=== PATIENT | male | born 1995 | race Caucasian/White ===

== ENCOUNTER 2016-05-15 17:54 | Emergency (ER) | payer SELFPAY ==
[2016-05-15 18:04] VITALS: TEMP 97.7
--- NOTE | 2016-05-15 18:10 | EDPHY ---
H & P Time Seen by Provider: 05/15/16 18:09 HPI/ROS: CHIEF COMPLAINT: Syncopal episode. HISTORY OF PRESENT ILLNESS: The patient is a 20-year-old male who presents after a syncopal episode earlier today. He was eating in a car when he became flushed, his vision went meier, and then he passed out. After he passed out, he had brief seizure-like activity, according to a friend. He was also incontinent of urine. Currently he reports feeling "slower and dazed." He denies headache, tarry stools, vomiting, nausea, dizziness, or other complaints. He's had a few syncopal episodes previously. The episodes occur randomly and he cannot describe any obvious provoking factors. He did fly in from [place] today. He has a family history of diabetes. REVIEW OF SYSTEMS: A complete 10-point review of systems was performed and is negative except for those items mentioned in the HPI. Past Medical/Surgical History: Denies. Social History: Smoker. Smoking Status: Current every day smoker Physical Exam: General Appearance: Alert, pleasant Eyes: Pupils equal and round, no conjunctival pallor or injection ENT, Mouth: Mucous membranes moist Neck: Normal inspection Respiratory: Lungs are clear to auscultation Cardiovascular: Regular rate and rhythm Gastrointestinal: Abdomen is soft and non-tender Neurological: Alert, oriented x3, cranial nerves II through XII intact, motor 5/ 5, sensory intact to light touch, normal gait Skin: Warm and dry, no rash Extremities: Nontender, no pedal edema Psychiatric: Mood and affect normal Constitutional: Initial Vital Signs Temperature (C) 36.5 C 05/15/16 18:02 Heart Rate 98 05/15/16 18:02 Respiratory Rate 16 05/15/16 18:02 Blood Pressure 126/76 H 05/15/16 18:02 O2 Sat (%) 94 05/15/16 18:02 O2 Delivery Mode Room Air Allergies/Adverse Reactions: No Known Allergies Allergy (Unverified 05/15/16 18:01) Home Medications: Medication Instructions Recorded NK [No Known Home Meds] 05/15/16 Medical Decision Making - Diagnostics EKG Interpretation: EKG interpreted by me reveals normal sinus rhythm, normal axis, normal intervals , ST and T segments normal. Interpretation: normal EKG ED Course/Re-evaluation: Patient presents after a syncopal episode with seizure-like activity. There is no indication of a primary seizure. An IV was established and labs ordered. Stat EKG reveals no evidence of dysrhythmia ischemia. Patient was asymptomatic throughout his emergency department stay. personnel monitor revealed normal sinus rhythm throughout. I feel that he is safe and stable for discharge. He will follow up with Cardiology for consideration of Holter monitoring. He will also follow up with Neurology. Differential Diagnosis: Differential diagnosis includes though is not limited to cardiac dysrhythmia, CVA, TIA, GI bleed, sepsis, hypoglycemia. - Data Points Laboratory Results: Laboratory Results 05/15/16 18:15 05/15/16 18:15 Medications Given: Discontinued Medications Sodium Chloride (Ns) 1,000 mls @ 0 mls/hr IV ONCE ONE PRN Reason: Wide Open Stop: 05/15/16 18:18 Last Admin: 05/15/16 18:18 Dose: 1,000 mls Departure - Departure Disposition: Home, Routine, Self-Care Clinical Impression: Syncope Qualifiers: Syncope type: unspecified Qualified Code(s): R55 - Syncope and collapse Condition: Good Instructions: Syncope (ED) Additional Instructions: Call Dr. Man, cardiology, and Dr. Acevedo, neurology, to set up appointments for next week. Return to the emergency department if you experience any serious worsening of condition. Referrals: Clifford Man MD [Medical Doctor] - As per Instructions Leighton Acevedo DO [Medical Doctor] - As per Instructions Report Scribed for: Sindi Tello Report Scribed by: Addison Valdez Date of Report: 05/15/16 Time of Report: 18:09 Physician Review and Approval Statement: 05/15/16 18:10 Portions of this note were transcribed by a medical research tech. I personally performed a history, physical exam, medical decision making, and confirmed accuracy of information the transcribed note.
[2016-05-15] MEDS ORDERED: NS 1,000 ML IV ONE (18:17)
[2016-05-15 18:24] LABS: % IMMATURE GRANULYOCYTES 0.3 % (0.0-1.1); ABSOLUTE IMMATURE GRANULOCYTES 0.04 10^3/uL (0.00-0.10); ADD DIFF? NO; ADD MORPH? NO; ADD SCAN? NO; ATYPICAL LYMPHOCYTE FLAG 10 (0-99); FRAGMENT RBC FLAG 0 (0-99); HEMATOCRIT 53.1 % (40.0-51.0); HEMOGLOBIN 18.4 g/dL (13.7-17.5); LEFT SHIFT FLG 0 (0-99); LIPEMIA HEMOLYSIS FLAG 90 (0-99); MEAN CELL HEMOGLOBIN 29.5 pg (27.9-34.1); MEAN CELL HEMOGLOBIN CONCENTR. 34.7 g/dL (32.4-36.7); MEAN CELL VOLUME 85.2 fL (81.5-99.8); PLATELET CLUMPS FLAG 0 (0-99); PLATELET COUNT 282 10^3/uL (150-400); RED BLOOD CELL COUNT 6.23 10^6/uL (4.40-6.38); RED CELL DISTRIBUTION WIDTH 12.4 % (11.5-15.2)
--- NOTE | 2016-05-15 18:30 | CPEKG ---
Heart Rate: 95 RR Interval: 632 P-R Interval: 152 QRSD Interval: 98 QT Interval: 328 QTC Interval: 413 P [place]: 32 QRS [place]: 22 T Wave [place]: 43 EKG Severity - NORMAL ECG - EKG Impression: SINUS RHYTHM Electronically Signed By: Sindi Tello 15-May-2016 23:18:55
[2016-05-15 18:44] LABS: ANION GAP 9 mEq/L (8-16); CALCIUM 9.6 mg/dL (8.5-10.4); CARBON DIOXIDE 27 mEq/l (22-31); CHLORIDE 101 mEq/L (97-110); CREATININE 0.9 mg/dL (0.7-1.3); GLOMERULAR FILTRATION RATE > 60; GLUCOSE 118 mg/dL (70-100); POTASSIUM 4.3 mEq/L (3.5-5.2); SODIUM 137 mEq/L (134-144)
[2016-05-15 18:56] LABS: TROPONIN I < 0.012 ng/mL (0-0.034)
[2016-05-15 19:58] VITALS: BP 120/74; PULSE 100; RESP 18; O2SAT 95
== END 2016-05-15 19:58 | disposition home or self-care (01) ==
DX: R55 Syncope and collapse (principal); F17.200 Nicotine dependence, unspecified, uncomplicated

== ENCOUNTER 2016-05-19 08:38 | Emergency (ER) | payer SELFPAY ==
--- NOTE | 2016-05-19 09:16 | EDPHY ---
H & P Stated Complaint: [place] a little lightheaded this am;also has sinus congestion; here last week Time Seen by Provider: 05/19/16 08:55 HPI/ROS: CHIEF COMPLAINT: Lightheaded, feeling sick HISTORY OF PRESENT ILLNESS: 21-year-old immunocompetent male awoke with flu- like symptoms this morning, feeling lightheaded. He was seen in the ER a few days ago for complaints of syncopal episode while he was sitting in a vehicle. He was evaluated at time by the ER physician and discharged. He has been asymptomatic ever since. His symptoms today include myalgias, subjective fever , "feeling sick", nasal congestion. No cough. No sore throat. No abdominal pain. No nausea no vomiting. No headache. No nuchal rigidity. No chest pain. No urinary abnormality. No bowel movement abnormality. 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 PRIMARY CARE PROVIDER: REVIEW OF SYSTEMS: A ten point review of systems was performed and is negative with the exception of the items mentioned in the HPI PAST MEDICAL & SURGICAL HISTORY: No pertinent medical or surgical history . Did receive influenza vaccination SOCIAL HISTORY: Daily smoker. No cocaine use. Works as a care provider at [employer] PHYSICAL EXAM (Prior to examination, patient consented to physical exam, hands were washed and my usual and customary physical exam procedures followed) 1) GENERAL: Well-developed, well-nourished, alert and oriented. Appears to be in no acute distress. Appears nontoxic 2) HEAD: Normocephalic, atraumatic 3) HEENT: Pupils equal, round, reactive to light bilaterally. Sclera anicteric. Nasopharynx, oropharynx, clear, no lesions. No tonsillar enlargement or tonsillar exudate. Ears bilaterally with normal tympanic membranes. 4) NECK: Full range of motion, no meningeal signs. 5) LUNGS: Clear auscultation bilaterally, no wheezes, no rhonchi, no retractions. 6) HEART: Regular rate and rhythm, no murmur, no heave, no gallop. 7) ABDOMEN: No guarding, no rebound, no focal tenderness, negative McBurney's, negative Abdul's, negative Rovsing's, negative peritoneal sign, 8) MUSCULOSKELETAL: Moving all extremities, no focal areas of tenderness, no obvious trauma. No peripheral edema or discoloration. 9) BACK: No CVA tenderness, no midline vertebral tenderness, no fluctuance, no step-off, no obvious trauma, no visual or palpable abnormality. 10) SKIN: No rash, no petechiae. 11) NEURO: Awake, alert, and oriented to person, place and time. Answers questions appropriately. There were no obvious focal neurologic abnormalities. No cerebellar dysfunction. Normal steady gait. Upper and lower extremities bilaterally with strength 5 / 5, reflexes 2+.. DIFFERENTIAL DIAGNOSIS: No particular include but limited to seizure, cardiac arrhythmia, viral URI, influenza - Personal History Current Tetanus Diphtheria and Acellular Pertussis (TDAP): Yes - Medical/Surgical History Hx Asthma: No Hx Chronic Respiratory Disease: No Hx Diabetes: No Hx Cardiac Disease: No Hx Renal Disease: No Hx Cirrhosis: No Hx Alcoholism: No Hx HIV/AIDS: No Hx Splenectomy or Spleen Trauma: No Other PMH: denies - Social History Smoking Status: Current every day smoker Constitutional: Initial Vital Signs Temperature (C) 36.7 C 05/19/16 08:40 Heart Rate 88 05/19/16 08:40 Respiratory Rate 16 05/19/16 08:40 Blood Pressure 141/87 H 05/19/16 08:40 O2 Sat (%) 96 05/19/16 08:40 O2 Delivery Mode Room Air Allergies/Adverse Reactions: No Known Allergies Allergy (Verified 05/19/16 08:45) Home Medications: Medication Instructions Recorded NK [No Known Home Meds] 05/15/16 Medical Decision Making ED Course/Re-evaluation: 9:15 a.m.: Old medical records reviewed. 10:45 a.m.: Re-evaluation. Discussed his laboratory results negative for flu, normal chemistry common normal sinus EKG. He has been given IV hydration is noted to have an elevated H and H with normal creatinine. He is feeling improvement after IV hydration. Plan will be discharge with my usual customary viral syndrome precautions. In the meantime should he develop new or worsening symptoms he needs to return to the ER immediately. He feels comfortable with this plan. Given a work note. Discussed with Dr Tello. - Data Points Laboratory Results: Laboratory Results 05/19/16 09:26 05/19/16 09:26 05/19/16 05/19/16 05/19/16 10:03 09:26 09:26 WBC 11.32 10^3/uL H 10^3/uL (3.80-9.50) RBC 6.30 10^6/uL 10^6/uL (4.40-6.38) Hgb 18.5 g/dL H g/dL (13.7-17.5) Hct 53.0 % H % (40.0-51.0) MCV 84.1 fL fL (81.5-99.8) MCH 29.4 pg pg (27.9-34.1) MCHC 34.9 g/dL g/dL (32.4-36.7) RDW 12.5 % % (11.5-15.2) Plt Count 251 10^3/uL 10^3/uL (150-400) MPV 10.0 fL fL (8.7-11.7) Neut % (Auto) 64.8 % % (39.3-74.2) Lymph % (Auto) 19.4 % % (15.0-45.0) [place] % (Auto) 12.2 % % (4.5-13.0) Eos % (Auto) 2.5 % % (0.6-7.6) Baso % (Auto) 0.7 % % (0.3-1.7) Nucleat RBC Rel Count 0.0 % % (0.0-0.2) Absolute Neuts (auto) 7.34 10^3/uL H 10^3/uL (1.70-6.50) Absolute Lymphs (auto) 2.20 10^3/uL 10^3/uL (1.00-3.00) Absolute Monos (auto) 1.38 10^3/uL H 10^3/uL (0.30-0.80) Absolute Eos (auto) 0.28 10^3/uL 10^3/uL (0.03-0.40) Absolute Basos (auto) 0.08 10^3/uL 10^3/uL (0.02-0.10) Absolute Nucleated RBC 0.00 10^3/uL 10^3/uL (0-0.01) Immature Gran % 0.4 % % (0.0-1.1) Immature Gran # 0.04 10^3/uL 10^3/uL (0.00-0.10) Sodium 138 mEq/L mEq/L (134-144) Potassium 4.1 mEq/L mEq/L (3.5-5.2) Chloride 104 mEq/L mEq/L (97-110) Carbon Dioxide 23 mEq/l mEq/l (22-31) Anion Gap 11 mEq/L mEq/L (8-16) BUN 19 mg/dL mg/dL (7-23) Creatinine 0.9 mg/dL mg/dL (0.7-1.3) Estimated GFR > 60 Glucose 95 mg/dL mg/dL (70-100) Calcium 10.0 mg/dL mg/dL (8.5-10.4) Influenza Typ A,B (DFA) NEGATIVE FOR FLU (NEGATIVE) Medications Given: Discontinued Medications Sodium Chloride (Ns) 1,000 mls @ 0 mls/hr IV ONCE ONE PRN Reason: Wide Open Stop: 05/19/16 09:18 Last Admin: 05/19/16 09:28 Dose: 1,000 mls Departure - Departure Disposition: Home, Routine, Self-Care Clinical Impression: Influenza-like illness Condition: Good Instructions: Viral Syndrome (ED) Additional Instructions: Return to the ER if you develop new or worsening symptoms, if you feel lightheaded or any other symptoms that concern you. Adult Pain & Fever Control: We recommend Acetaminophen (Tylenol) and Ibuprofen (Motrin,Advil) for pain and fever control. When fever is high or pain severe, both drugs can be used at the same time, but at different intervals. Please note the time differences. Your dose is: Acetaminophen 1000mg every 6 hours Ibuprofen 800mg every 6 hours with food OR Note: do not take Acetaminophen with Hydrocodone (Vicodin, Lortab) or Oycodone (Percocet). These medications also contain Acetaminophen. No more than 3000mg of Acetaminophen should be taken in 24 hours (for an adult). Referrals: Juan Good MD [Medical Doctor] - 2-3 days, call for appt.
[2016-05-19] MEDS ORDERED: NS 1,000 ML IV ONE (09:17)
[2016-05-19 09:40] LABS: % IMMATURE GRANULYOCYTES 0.4 % (0.0-1.1); ABSOLUTE IMMATURE GRANULOCYTES 0.04 10^3/uL (0.00-0.10); ADD DIFF? NO; ADD MORPH? NO; ADD SCAN? NO; ATYPICAL LYMPHOCYTE FLAG 10 (0-99); FRAGMENT RBC FLAG 0 (0-99); HEMOGLOBIN 18.5 g/dL (13.7-17.5); LEFT SHIFT FLG 0 (0-99); LIPEMIA HEMOLYSIS FLAG 90 (0-99); MEAN CELL HEMOGLOBIN 29.4 pg (27.9-34.1); MEAN CELL HEMOGLOBIN CONCENTR. 34.9 g/dL (32.4-36.7); MEAN CELL VOLUME 84.1 fL (81.5-99.8); PLATELET CLUMPS FLAG 10 (0-99); PLATELET COUNT 251 10^3/uL (150-400); RED CELL DISTRIBUTION WIDTH 12.5 % (11.5-15.2)
--- NOTE | 2016-05-19 09:48 | CPEKG ---
Heart Rate: 80 RR Interval: 750 P-R Interval: 156 QRSD Interval: 88 QT Interval: 344 QTC Interval: 397 P [place]: 16 QRS [place]: 30 T Wave [place]: 34 EKG Severity - NORMAL ECG - EKG Impression: SINUS RHYTHM Electronically Signed By: Sindi Tello 19-May-2016 13:21:51
[2016-05-19 09:53] LABS: ANION GAP 11 mEq/L (8-16); CARBON DIOXIDE 23 mEq/l (22-31); CHLORIDE 104 mEq/L (97-110); CREATININE 0.9 mg/dL (0.7-1.3); GLOMERULAR FILTRATION RATE > 60; GLUCOSE 95 mg/dL (70-100); POTASSIUM 4.1 mEq/L (3.5-5.2); SODIUM 138 mEq/L (134-144)
[2016-05-19 11:05] VITALS: BP 134/84; PULSE 99; RESP 14; TEMP 98.4; O2SAT 94
== END 2016-05-19 11:03 | disposition home or self-care (01) ==
DX: J11.1 Influenza due to unidentified influenza virus with other respiratory manifestations (principal); F17.200 Nicotine dependence, unspecified, uncomplicated